=== PATIENT | female | born 1985 | race Caucasian/White ===

== ENCOUNTER → 2020-05-23 10:13 | Outpatient (CLI) | payer OTHER, SELFPAY ==
[2020-05-23 11:30] LABS: Add Manual Diff / Slide Review NO; Basophils Absolute Auto 0 /uL (0-100); Basophils Percent Auto 0.4 % (0-2); Eosinophils Absolute Auto 100 /uL (0-450); Eosinophils Percent Auto 1.1 % (2-4); Hematocrit 40.5 % (36-46); Hemoglobin 13.7 g/dL (12.0-16.0); Lymphocytes Absolute Auto 1200 /uL (1100-4500); Mean Corpuscular HGB Conc 33.9 % (30-36); Mean Corpuscular Hemoglobin 30.8 PG (26-34); Mean Corpuscular Volume 90.9 fL (80-100); Monocytes Absolute Auto 600 /uL (0-900); Monocytes Percent Auto 9.3 % (3-14); Neutrophils Absolute Auto 4200 /uL (1500-7000); Neutrophils Percent Auto 69.2 % (50-75); Platelet Count 224 X10^3/uL (150-400); Red Blood Cell Count 4.45 X10^6/uL (4.0-5.2); Red Cell Distribution Width 13.5 % (11.6-14.8); White Blood Cell Count 6.1 X10^3/uL (4.5-11.0)
[2020-05-23 11:52] LABS: Hemoglobin A1C% w Est Avg Glu 5.6 % (4.0-6.0)
[2020-05-23 11:53] LABS: Glucose 97 mg/dL (70-100)
[2020-05-23 14:35] LABS: Appearance Urine UA CLEAR; Bilirubin Urine UA NEGATIVE (NEGATIVE); Color Urine UA YELLOW; Glucose Urine UA TRACE g/dL (Negative); Ketones Urine UA NEGATIVE (NEGATIVE); Leukocyte Esterase Urine UA NEGATIVE (NEGATIVE); Nitrite Urine UA NEGATIVE (Negative); Occult Blood Urine UA NEGATIVE (Negative); Protein Urine UA TRACE (Negative); Specific Gravity Urine UA 1.015 (1.000-1.035); Urine N gonorrhoeae NOT DETECTED; Urobilinogen Urine UA 0.2 E.U./dL (0.2)
[2020-05-23 14:39] LABS: Urine Chlamydia NOT DETECTED
[2020-05-23 18:14] LABS: Hepatitis B Surface Antigen NEGATIVE s/c (NEGATIVE)
[2020-05-23 18:30] LABS: HIV 1 & 2 Ab/Ag 4th Gen Combo NEGATIVE (NEGATIVE); Hep C Virus Ab w/Reflex Quant NEGATIVE s/c (NEGATIVE)
[2020-05-24 05:56] LABS: Varicella IgG Antibody 699 index (Immune >165)
[2020-05-24 08:09] LABS: RPR Screen Non Reactive (Non Reactive)
== END ==
PROVIDERS: PCP Obstetrics & Gynecology; Referring Provider Obstetrics & Gynecology; Visit Provider Obstetrics & Gynecology
DX: Z34.81 Encounter for supervision of other normal pregnancy, first trimester (principal); Z3A.08 8 weeks gestation of pregnancy
CPT/HCPCS: 36415; 80055; 81003; 82947; 83036; 86787; 86803; 86850; 86900; 86901; 87086; 87389; 87491; 87591

== ENCOUNTER → 2020-08-15 12:08 | Outpatient (CLI) | payer OTHER, SELFPAY ==
--- NOTE | 2020-08-15 12:09 | DI.US.S_ITS ---
PROCEDURE: US OB >= 14 WEEKS FETUS INDICATIONS: Anatomy Scan OUTSIDE/PRIOR DATING DATA: Last menstrual period (LMP): Not available. LMP-based estimated date of delivery (LUCINA): Not available . First dating scan (date and location): 05/25/[address] Ivan . Estimated date of delivery (LUCINA) from first dating scan: 12/28/20. TECHNIQUE: Real-time scanning was performed of the fetus, with image documentation and biometric measurements. Endovaginal scanning: Not needed COMPARISON: [facility], , OB >= 14 WEEKS FETUS, 07/18/2020, 16:02. FINDINGS: General: A single living intrauterine gestation is present. Presentation: Transverse. Placenta: Placental position is posterior , without previa. Amniotic fluid index: 12.9 cm, normal range is 5-24 cm. heart rate: 150 beats per minute. Maternal cervical canal: 5.5 cm long. Normal lower limit is 2.5 cm. biometrics: Biparietal diameter: 4.5 cm, 19 weeks 5 days Head circumference: 18.0 cm, 20 weeks 3 days Abdominal circumference: 17.7 cm, 22 weeks 4 days Femur length: 4.1 cm, 23 weeks 3 days Estimated gestational age from initial scan: 20 weeks 5 days. Composite gestational age from present scan: 21 weeks 4 days Estimated weight and percentile: 512 g, greater than the upper 99th percentile. Measurement variability for biometric dating: +/- 7 days from 14 weeks to 15 weeks 6 days gestation, +/- 10 days from 16 weeks to 21 weeks 6 days gestation, +/- 2 weeks from 22 weeks to 27 weeks 6 days gestation, +/- 3 weeks for 28 weeks gestation or later. weight reference: 4500 g or EFW >90/95% is considered macrosomia or large for gestational age. EFW <10% is small for gestational age. EFW 5% or less is considered intra-uterine growth restriction. Anatomic survey: Neuro: Ventricles are non-dilated at less than 10 mm. Cisterna magna is normal at 3-11 mm. Cerebellum is normal in size and morphology. Nuchal skin fold: Normal at less than 6 mm between 14-21 weeks gestational age. Face: Nose and lips, facial profile are not well seen. Spine: No evidence for spina bifida. Heart: 4-chambered heart is present, with normal ventricular outflow tracts. Diaphragm: Diaphragm is intact. Stomach: Left-sided stomach is present. Kidneys: No hydronephrosis. Normal is less than 5 mm in 2nd trimester, less than 7 mm in 3rd trimester. Cord: 3-vessel cord has orthotopic insertion. Bladder: Normal in size. Extremities: All 4 extremities identified. IMPRESSION: Normal survey of anatomy however the facial profile could not be seen due to positioning and maternal body habitus. Follow-up attempt in 10 days-2 weeks is recommended. All other anatomy appears normal. The current estimated weight is at the upper 99th percentile, follow-up assessment for growth parameters is recommended in the follow-up of anatomy scan to assess for persistence of early macrosomia. Dictated by: Dallas Dennison M.D. on 08/15/2020 at 15:41 Approved by: Dallas Deninson M.D. on 08/15/2020 at 15:47
== END ==
PROVIDERS: PCP Naturopath; Referring Provider Obstetrics & Gynecology; Visit Provider Obstetrics & Gynecology
DX: Z34.82 Encounter for supervision of other normal pregnancy, second trimester (principal); Z3A.21 21 weeks gestation of pregnancy
CPT/HCPCS: 76811

== ENCOUNTER → 2020-08-19 08:57 | Outpatient (CLI) | payer OTHER, SELFPAY ==
[2020-08-19 10:55] LABS: Hematocrit 36.8 % (36-46); Hemoglobin 12.6 g/dL (12.0-16.0)
[2020-08-19 11:18] LABS: GTT (PREG) 1 Hour PP 50gm Dose 159 mg/dL (76-139)
== END ==
PROVIDERS: PCP Naturopath; Referring Provider Obstetrics & Gynecology; Visit Provider Obstetrics & Gynecology
DX: Z34.82 Encounter for supervision of other normal pregnancy, second trimester (principal); Z3A.24 24 weeks gestation of pregnancy
CPT/HCPCS: 36415; 82950; 85014; 85018

== ENCOUNTER → 2020-08-25 09:09 | Outpatient (CLI) | payer OTHER, SELFPAY ==
[2020-08-25 10:47] LABS: Glucose Fasting 99 mg/dL (70-100)
[2020-08-25 12:34] LABS: Glucose 1 Hour 152 mg/dL (70-170)
[2020-08-25 12:38] LABS: Glucose 2 Hour 119 mg/dL (70-140)
[2020-08-25 12:56] LABS: Glucose Tol Interpretation INTERPRETATION
[2020-08-25 13:39] LABS: Glucose 3 Hour 85 mg/dL (70-115)
== END ==
PROVIDERS: PCP Naturopath; Referring Provider Obstetrics & Gynecology; Visit Provider Obstetrics & Gynecology
DX: Z34.92 Encounter for supervision of normal pregnancy, unspecified, second trimester (principal); Z86.32 Personal history of gestational diabetes
CPT/HCPCS: 82951; 82952

== ENCOUNTER → 2020-11-22 09:59 | Outpatient (CLI) | payer OTHER, SELFPAY ==
[2020-11-23 10:08] LABS: Strep Grp B PCR NEG for Grp B Strep
== END ==
PROVIDERS: PCP Naturopath; Visit Provider Obstetrics & Gynecology
DX: Z34.83 Encounter for supervision of other normal pregnancy, third trimester (principal); Z3A.35 35 weeks gestation of pregnancy
CPT/HCPCS: 87653

== ENCOUNTER 2020-12-06 02:33 | Inpatient (IN) | payer OTHER, SELFPAY ==
[2020-12-06] MEDS: LACTATED RINGERS 1,000 ML 100 ML IV ×2 (03:30→18:58)
--- NOTE | 2020-12-06 04:07 | PM.OBHP.1 ---
OB HPI Date/Time Date of admission: 12/06/20 Date Patient Seen: 12/06/20 Time Patient Seen: 04:07 History of Present Condition Chief complaint: Evaluation of labor : 5 Para: 2 Estimated Date of Delivery: 12/27/20 Estimated Gestational Age (weeks): 37 Narrative: Lore Figueredo is a 35 year old female with prior section in active labor Indications Operative indications ( section): previous uterine surgery (Previous section) History of Present care: good care, initiated at week # (8), number of visits (8) and pounds weight gain (22) Dating criteria: LMP confirmed by 1st trimester US Ultrasounds: normal mid trimester US Obstetrical complications: none Medical complications: other (On blood thinners throughout due to history of DVT) Preadmission Labs Blood type: O (+) positive -: Antibody screen: negative, GBS status: negative, HBsAG: negative, HIV: negative and RPR/VDLR: negative -: Chlamydia screen: not detected and Gonorrhea screen: not detected -: Rubella: immune and Varicella: immune HCAB: negative 1 hr GTT: 159 3 hr GTT: 1 hr (152), 2 hr (119) and 3 hr (85) Fasting blood glucose: 99 Prior (ies) History: 02/22/2014 39 week 8 lb 7 oz female on blood thinners for DVT 04/20/2018 section planned but onset of labor 10 lb 4 oz Evaluation Evaluation Baseline heart rate: 150 Variability: Moderate (11-25) monitor accelerations: Present Monitor Decelerations: Absent Contraction Frequency (minutes): 4 Uterine Contraction Intensity: Moderate Category of Tracing: Reactive Status: Category l PFSH Medical History (Updated 06/20/20 @ 12:29 by Maryann Ivan MD) Chicken pox (~1990) DVT (deep venous thrombosis) (~01/2013) Gestational diabetes mellitus (GDM) affecting Leg fracture Obesity Sleep apnea in adult (~07/2017) (spontaneous vaginal delivery) (~02/22/14) Wears glasses Surgical History (Updated 05/24/20 @ 19:20 by Maryann Ivan MD) H/O wisdom tooth extraction History of primary section (~04/20/18) History of tonsillectomy Family History (Updated 05/17/20 @ 12:31 by Clementina Villagomez RN) Mother No problems noted. Father Diabetes mellitus Grandmother No problems noted. Grandfather Emphysema lung Grandmother Cancer Lung cancer Smoker Grandfather Diabetes mellitus Dementia Heart disease Sister No problems noted. 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 lisa/yazidi: [employer] special lisa needs: No Smoking Status: Never smoker second hand exposure: No alcohol intake: former substance use type: does not use Meds Home Medications and Allergies Home Medications Medication Instructions Recorded Confirmed Type prenat.vits,ivan,wfw-jure-opjbz 1 tab PO DAILY 05/17/20 11/22/20 History heparin, porcine (PF) 5,000 5,000 unit SUBCUT BID #30 ml 11/22/20 11/22/20 Rx unit/0.5 mL injection syringe Allergies Allergy/AdvReac Type Severity Reaction Status Date / Time No Known Drug Allergies Allergy Verified 11/22/20 09:30 Review of Systems Review of Systems Narrative: Patient began having contractions this evening. They have increased in frequency and strength. No leakage of fluid. Good movement. No vaginal bleeding. Patient has a mild headache. No scotomata or epigastric pain. ROS: Yes All systems reviewed with the patient and are negative except as otherwise documented Exam Vital Signs (past 8 hours): Blood pressure 139/85, pulse 74, temperature 96.8? Narrative Exam Narrative: HEENT exam within normal limits. Lungs are clear to auscultation percussion. Heart is regular rate and rhythm no S3-S4 or murmurs. Abdomen is gravid. Mild tenderness. Extremities without edema nontender. Assessment and Plan Assessment and Plan Assessment and Plan narrative: 37 week gestation with prior section in active labor. Repeat section. Consent form was signed with the patient. Risk for damage to internal structures such as bowel, bladder, ureters that could require additional surgery to repair. Risk infection. Risk of bleeding enough to require blood transfusion. Patient is agreeable to blood transfusion. Reaction to medication or anesthesia that could result in or permanent or partial disability. Consent form signed and questions answered. Patient recently switched from Lovenox to heparin for history of DVT. Patient states her last dose of heparin was 20 hours ago.
--- NOTE | 2020-12-06 04:19 | PM.PREOP ---
Pre-operative Note COVID-19 COVID-19 status: Negative Result date/Date tested (Pos, Neg/Pending): 12/06/20 Interval Note History & Physical reviewed/Exam performed by Physician: Yes Changes to H&P: No
[2020-12-06 04:20] LABS: Add Manual Diff / Slide Review NO; Basophils Absolute Auto 100 /uL (0-100); Basophils Percent Auto 0.7 % (0-2); Eosinophils Absolute Auto 100 /uL (0-450); Eosinophils Percent Auto 1.2 % (2-4); Hematocrit 37.8 % (36-46); Hemoglobin 12.5 g/dL (12.0-16.0); Lymphocytes Absolute Auto 2100 /uL (1100-4500); Lymphocytes Percent Auto 19.8 % (25-40); Mean Corpuscular HGB Conc 33.2 % (30-36); Mean Corpuscular Volume 90.3 fL (80-100); Monocytes Absolute Auto 800 /uL (0-900); Monocytes Percent Auto 7.6 % (3-14); Neutrophils Absolute Auto 7400 /uL (1500-7000); Neutrophils Percent Auto 70.7 % (50-75); Platelet Count 209 X10^3/uL (150-400); Red Blood Cell Count 4.18 X10^6/uL (4.0-5.2); Red Cell Distribution Width 14.8 % (11.6-14.8); White Blood Cell Count 10.5 X10^3/uL (4.5-11.0)
[2020-12-06 04:40] LABS: Prothrombin Time 11.1 SECONDS (10.1-12.7)
[2020-12-06 04:43] LABS: PTT Partial Thromboplastin Tim 24 SECONDS (26.4-36.2)
[2020-12-06 05:18] VITALS: BP 134/62
[2020-12-06 05:32] LABS: COVID19 - ADMIT (NP swab/PCR) Negative (Negative)
[2020-12-06] MEDS: CEFAZOLIN 2 GM/100 ML FROZ.PIGGY IV (06:39)
[2020-12-06] MEDS: CEFAZOLIN 1 GM/50 ML FROZ.PIGGY IV (06:50)
--- NOTE | 2020-12-06 07:07 | SUR.OPER ---
Supine on Padded OR bed, head on pillow, safety belt at thigh, arms secured on padded arm boards at <90 degrees abduction. Bump under right buttock. Legs uncrossed with pillow under knees, gel pad to heels, tape over blanket to lower legs.
--- NOTE | 2020-12-06 07:35 | SUR.OPER ---
Live female at 0706. APGARS 6/7. Call for oncall bar tender at [phone]
[2020-12-06 07:48] VITALS: BP 135/72; PULSE 105; RESP 20; TEMP 36.4; O2SAT 97
--- NOTE | 2020-12-06 07:55 | PM.OBCS.1 ---
Operative Date/Time/Diagnoses Date of procedure: 12/06/20 Time of procedure: 07:56 Pre-op diagnosis: 37 weeks gestation with prior section in labor Post-op diagnosis: same Procedure & Clinicians Procedure: Repeat low-transverse section Same procedure as scheduled: Yes Surgeon: Megha Dukes Recoating Machine Operator: Maryann Ivan Anesthesia Type: Spinal Operative Notes Findings: Normal tubes, ovaries, uterus. Viable female with Apgars of 6 and 7 weight is pending Closure Type: primary Specimen(s): cord blood Intraoperative meds administered: Pitocin Applied: Catheter (Shook) Estimated Blood Loss (mL): 400 Blood products transfused: none Procedure in detail: The patient was brought to the operating room where she underwent a spinal for anesthesia. She was placed in a supine position with a left lateral tilt. A Shook catheter was placed. Pulsatile stockings were placed and functional throughout the case. 3 g of Ancef were given IV prior to the incision. Warming was in place. The patient was prepped and draped in usual sterile fashion. A low transverse incision was made with a scalpel through the prior incision and the incision was carried down to the fascial layer which was incised transversely with scissors. The educational/development assistant did her side of the incision. The midline attachments are superiorly and inferiorly. The rectus muscles were in the midline and the peritoneal incision was made with no damage to internal structures. The peritoneum was incised and superiorly and inferiorly. The incision was stretched with the surgeon and educational/development assistant placing traction. Bladder blade was placed and a bladder flap was developed and the bladder held away from the lower uterine segment. An Rakesh retractors was placed. An incision was made in the uterus with the scalpel and the incision was extended with stretching. The head was elevated out of the abdomen and with fundal pressure by the educational/development assistant the baby was delivered. The was bulb suctioned for clear fluid and handed off to the warmer. Cord blood was collected. The placenta delivered spontaneously with traction. The uterus was cleaned with clean laps. The uterine incision was closed in 2 layers of 0 chromic suture the first a running locking layer the second an imbricating layer. The educational/development assistant was helping to expose the incision. [id number] sutures were used to control areas of bleeding. The bladder peritoneum was repaired with 2-0 Vicryl suture. The gutters were cleaned of any remaining fluids and ovaries and tubes were observed to be normal. Adequate hemostasis was noted. The perineum was closed with 2-0 Vicryl suture. The fascia layer was closed with 0 Vicryl suture with 2 stitches. The educational/development assistant repairing half the incision with helping to retract and expose the incision for the other half. The incision was irrigated and adequate hemostasis noted. The incision was closed with interrupted 3-0 Vicryl sutures and then a subcuticular stitch of 4-0 Vicryl suture. Steri-Strips were placed. The uterus was massaged to remove any clots. The patient went to recovery room in good condition. Counts of instruments and sponges were correct. Dr. Ivan was present throughout the case to assist with retraction, fundal pressure to deliver the , and suturing half the fascia. Complications: none Post-operative Condition: stable Disposition: other ( Center) Aftercare: routine postop
[2020-12-06 07:56] VITALS: BP 120/62; PULSE 85; RESP 16; O2SAT 96
[2020-12-06 08:02] VITALS: BP 109/61; PULSE 79; RESP 20; O2SAT 97
[2020-12-06 08:08] VITALS: BP 122/65; PULSE 82; RESP 18; O2SAT 95
[2020-12-06 08:17] VITALS: BP 115/65; PULSE 74; RESP 18; TEMP 36.7; O2SAT 97
--- NOTE | 2020-12-06 08:31 | SUR.PHASEI ---
Pt transfered to with report given to Fran. Smith on arrival at bedside and assisted Kyle Rn in change of [place] pad and chux and fundal check. Pt left in stable condition, bed locked, scd on.
[2020-12-06] MEDS: diphenhydrAMINE 50 MG/ML VIAL 25 MG IV ×3 (09:20→19:55)
[2020-12-06] MEDS: ENOXAPARIN 40 MG/0.4 ML SYRINGE SUBCUT (15:13)
[2020-12-06] MEDS: OXYCODONE IR 5 MG TABLET PO ×2 (15:13→21:31)
[2020-12-06] MEDS: ACETAMINOPHEN 325 MG TABLET 650 MG PO ×2 (15:14→21:30)
[2020-12-07] MEDS: OXYCODONE IR 5 MG TABLET PO (02:44)
[2020-12-07] MEDS: ACETAMINOPHEN 325 MG TABLET 650 MG PO (02:45)
[2020-12-07 06:32] LABS: Add Manual Diff / Slide Review NO; Basophils Absolute Auto 100 /uL (0-100); Basophils Percent Auto 0.7 % (0-2); Eosinophils Absolute Auto 100 /uL (0-450); Eosinophils Percent Auto 0.9 % (2-4); Hematocrit 35.6 % (36-46); Hemoglobin 12.1 g/dL (12.0-16.0); Lymphocytes Absolute Auto 1300 /uL (1100-4500); Lymphocytes Percent Auto 12.5 % (25-40); Mean Corpuscular HGB Conc 33.8 % (30-36); Mean Corpuscular Hemoglobin 30.1 PG (26-34); Mean Corpuscular Volume 88.9 fL (80-100); Monocytes Absolute Auto 800 /uL (0-900); Monocytes Percent Auto 7.4 % (3-14); Neutrophils Absolute Auto 8200 /uL (1500-7000); Neutrophils Percent Auto 78.5 % (50-75); Platelet Count 162 X10^3/uL (150-400); Red Blood Cell Count 4.01 X10^6/uL (4.0-5.2); White Blood Cell Count 10.4 X10^3/uL (4.5-11.0)
[2020-12-07 06:41] LABS: Estimated Glomerular Filt Rate > 60.0 mL/min (>60)
--- NOTE | 2020-12-07 08:19 | P.DS_ITS ---
Discharge Providers Provider Date of admission: 12/06/20 02:33 Discharge Date: 12/07/20 Primary care physician: Margarita Lundberg ND Consults: 12/06/20 08:47 Consult to [employer] Instructor Routine Comment: Discharge provider: Megha Dukes MD Summary Hospital Course Date Patient Seen: 12/07/20 Time Patient Seen: 08:21 Diagnoses: 37 week gestation with prior section Hospital Course: Patient arrived on Labor and delivery in active labor. She underwent a repeat low-transverse section. She is urinating well. Passing gas. A amb ulatory. Tolerating regular diet. Pain is under control. Peripartum Data Delivery Method: Section (Repeat performed early due to active labor) Procedures: Repeat low-transverse section complications: none 1: Gender: Female Disposition of : NICU (Need for oxygen supplementation) Discharge Diagnosis (1) Delivery by section at 37-39 weeks of gestation due to labor: Status: Acute (2) History of DVT (deep vein thrombosis): Status: Acute Status at Discharge Cognitive/behavioral status at discharge: oriented Functional status at discharge: independent ambulation Overall status at discharge: patient is progressing back to baseline Time Spent with Patient Time attestation: Total time spent providing and/or coordinating discharge services: Time spent: Less than 30 minutes Objective Labs Result Diagrams: 12/07/20 06:25 12/07/20 06:25 Labs: Laboratory Results - last 24 hr 12/07/20 12/07/20 06:25 06:25 WBC 10.4 RBC 4.01 Hgb 12.1 Hct 35.6 L MCV 88.9 MCH 30.1 MCHC 33.8 RDW 15.0 H Plt Count 162 Neut % (Auto) 78.5 H Lymph % (Auto) 12.5 L [place] % (Auto) 7.4 Eos % (Auto) 0.9 L Baso % (Auto) 0.7 Neut # (Auto) 8200 H Lymph # (Auto) 1300 [place] # (Auto) 800 Eos # (Auto) 100 Baso # (Auto) 100 Creatinine 0.55 Estimated GFR > 60.0 Exam Vital Signs (past 8 hours): Blood pressure 121/81, pulse of 89, temperature 97.8? Oxygen Delivery Method Room Air Narrative Exam Narrative: Abdomen is soft, nontender. Uterus is firm, U +1, appropriately tender. Mild lochia. Extremities with trace edema and nontender. Discharge Plan Discharge Plan Patient Disposition: Home Discharge orders & Medications Prescriptions: New docusate sodium 250 mg Capsule 250 mg PO DAILY Qty: 20 RF: 0 oxycodone 5 mg Tablet 5 mg PO Q4H PRN (Reason: Pain, Moderate (4-6)) Qty: 30 RF: 0 enoxaparin [Lovenox] 40 mg/0.4 mL Syringe 40 mg SUBCUT Q24H Qty: 30 RF: 0 Continued prenat.vits,ivan,xwb-krkt-cfekn Tablet 1 tab PO DAILY RF: 0 Discontinued heparin, porcine (PF) 5,000 unit/0.5 mL syringe 5,000 unit SUBCUT BID Qty: 30 RF: 0 Follow up/Referrals: Megha Dukes MD [Physician] - 6 Weeks (Appointment with Dr. Ivan, she will d o a telehealth appointment with Dr. Ivan 1 week) Margarita Lundberg ND [Primary Care Provider] - Diet/Activity/Treatments Diet: Regular Activity: Nothing in vagina or lifting over 20 lb for 6 weeks Skin/Wound/Dressing Care Report to your healthcare provider any signs of infection, such as:: chills, fever and increased pain Dressing: Leave dressing on until 1 week postop visit Discharge Data Primary Care Provider: Margarita Lundberg
[2020-12-07] MEDS: OXYCODONE IR 10 MG TABLET PO (08:50)
[2020-12-07] MEDS: LANOLIN OINT 7 GM 1 APPLIC TOP (08:50)
[2020-12-07] MEDS: DOCUSATE 250 MG CAPSULE PO (08:50)
[2020-12-07 08:53] VITALS: BP 115/65; PULSE 74; RESP 18; TEMP 36.7
== END 2020-12-07 10:00 | disposition home or self-care (01) | DRG 788 ==
PROVIDERS: Admitting Provider Specialist; PCP Naturopath; Referring Provider Specialist; Visit Provider Specialist
PROC: 10D00Z1 Extraction of Products of Conception, Low, Open Approach (ICD-10-PCS; CPT 59514; principal; 2020-12-06 07:00)
DX: O75.82 Onset (spontaneous) of labor after 37 completed weeks of gestation but before 39 completed weeks gestation, with delivery by (planned) cesarean section (principal); O34.219 Maternal care for unspecified type scar from previous cesarean delivery; Z3A.37 37 weeks gestation of pregnancy; Z37.0 Single live birth; O99.891 Other specified diseases and conditions complicating pregnancy; Z86.718 Personal history of other venous thrombosis and embolism; K21.9 Gastro-esophageal reflux disease without esophagitis; Z79.01 Long term (current) use of anticoagulants; Z20.822 Contact with and (suspected) exposure to COVID-19
CPT/HCPCS: 36415; 59510; 59514; 82565; 85025; 85610; 85730; 86850; 86900; 86901; 87635; C9803; G0379; J0690; J1200; J1650; J1885; J2274; J2590; J3010